=== PATIENT | male | born 1960 | race Caucasian/White ===

== ENCOUNTER 2023-01-05 18:50 | Observation (INO) | payer OTHER, SELFPAY ==
[2023-01-05] VITALS (7 sets, daily range): BP systolic 129–190; BP diastolic 51–71; PULSE 73–100; RESP 13–23; TEMP 38.1; O2SAT 86–98
--- NOTE | ~2023-01-05 | XR_ITS ---
EXAMINATION: XR chest 1V portable INDICATION: Shortness of breath and cough TECHNIQUE: Portable AP chest at 1925 hours COMPARISON: 04/16/2018 FINDINGS: There are interstitial and airspace opacities of the mid and lower lung zones. No pleural e ffusion or pneumothorax. The cardiomediastinal silhouette is normal. IMPRESSION: 1. Interstitial and airspace opacities of the mid and lower lung zones, consistent with pneumonia and /or pulmonary edema. Reviewed, dictated and finalized at location F. TRUCK DRIVER IMPRESSION: 1. Interstitial and airspace opacities of the mid and lower lung zones, consist ent with pneumonia and/or pulmonary edema.
--- NOTE | ~2023-01-05 | US_ITS ---
EXAMINATION: US venous doppler [facility] DATE: 01/07/2023 09:30 INDICATION: Lower limb edema. TECHNIQUE: Grayscale ultrasound images without and with compression and Doppler ultrasound images of the bilateral lower extremity veins were obtained. COMPARISON: None. FINDINGS: The visualized portions of right common femoral vein, profunda (deep) femoral vein, femoral vein, pop liteal vein, peroneal veins, posterior tibial veins, and greater saphenous vein outflow are patent. The visualized portions of left common femoral vein, profunda femoral vein, femoral vein, popliteal v ein, peroneal veins, posterior tibial veins, and greater saphenous vein outflow are patent. IMPRESSION: 1. No deep venous thrombosis. Reviewed, dictated and finalized at location D. NT CHEMIST
--- NOTE | 2023-01-05 19:04 | ECG_ITS ---
Measurements Intervals [place] Rate: 96 P: 91 NE: 140 QRS: 15 QRSD: 115 T: 149 QT: 321 QTc: 407 Interpretive Statements SINUS RHYTHM INTRAVENTRICULAR CONDUCTION DELAY NONSPECIFIC ST & T-WAVE ABNORMALITY- DIFFUSE LEADS BASELINE WANDER- I, II, AVR, AVL, V1-V6 BORDERLINE ECG NO PREVIOUS ECG AVAILABLE FOR COMPARISON Electronically Signed On 01-06-2023 6:44:59 SUPPORT CLERK by Wes Mohr D.O.
--- NOTE | 2023-01-05 19:20 | ED.GENADULT ---
HPI - General Adult General Chief complaint: Shortness of Breath/Dyspnea Stated complaint: SOB Time Seen by Provider: 01/05/23 19:08 History of Present Illness HPI narrative: Patient 62-year-old gentleman who presents to the emergency department with chief complaint of shortness of breath. The patient reports about a week ago he started having cough and was concerned that he may have COVID. The patient did a home test that was nondetected at that time. Patient states that he has history of COPD and reports that he has been feeling more short of breath. Related Data Home Medications Medication Instructions Recorded Confirmed metoprolol tartrate 50 mg tablet 100 mg PO DAILY 01/11/20 01/02/23 Allergies Allergy/AdvReac Type Severity Reaction Status Date / Time No Known Allergies Allergy Verified 01/05/23 18:58 Review of Systems Review of Systems: A 10 system review of systems was completed on the patient and is negative except for what is stated in the HPI. Nursing and ancillary documentation was reviewed. [facility] Past Medical History Medical History COVID-19 Electrical isolation of left atrial appendage after cardiac ablation procedure for atrial fibrillation Obesity Family History Family History Sibling Asthma Patient's sister is in good health Mother Family history of osteoarthritis Family history of Alzheimer's disease Family history of restless legs syndrome Patient's mother is Father Malignant neoplasm of prostate Patient's father is Social History Social History Smoking status: Never smoker Second hand tobacco smoke exposure: No Alcohol intake: current Alcohol use details: a beer occasionally Substance use: never Substance use type: does not use Lack of Transportation: No Lack of Food: Never True Current Housing: I Have Housing Concerned About Future Housing: No Difficulty Paying Gas/Electric Bills: No Difficulty Paying for Meds: No Currently Unemployed: No Education: Bachelor's Degree Difficulty w/ Childcare or Family Care: No Living arrangements: alone Spiritual care concerns: No Exam Narrative: GENERAL: Well-appearing, well-nourished, and in no acute distress. HEAD: Normocephalic, atraumatic. EYES: PERRLA and EOMI. ENT: Nares clear, no rhinorrhea or epistaxis. Mucous membranes moist. NECK: Supple. CHEST:scattered wheezes bilaterally. No respiratory distress. HEART: Regular rate and rhythm. No murmur heard. Normal peripheral pulses. ABDOMEN: Soft, nontender, nondistended, normal active bowel sounds. EXTREMITIES: Normal range of motion. No edema. SKIN: Warm, dry, no rash. NEURO: No focal deficits. Alert and oriented x3. PSYCH: Normal mood and affect. Course Vital Signs Vital signs: Vital Signs Temperature 38.1 C H 01/05/23 18:49 Pulse Rate 100 01/05/23 18:49 Respiratory Rate 23 H 01/05/23 18:49 Blood Pressure 190/71 H 01/05/23 18:49 Pulse Oximetry 86 L 01/05/23 18:49 Oxygen Delivery Room Air 01/05/23 18:49 Temperature 38.1 C H 01/05/23 18:49 Pulse Rate 88 01/05/23 19:39 Respiratory Rate 17 01/05/23 19:39 Blood Pressure 190/71 H 01/05/23 18:49 Pulse Oximetry 98 01/05/23 18:56 Oxygen Delivery Nasal Cannula 01/05/23 18:56 Oxygen Flow Rate 2 01/05/23 18:56 Medical Decision Making MDM Narrative Medical decision making narrative: Differential diagnosis includes COPD exacerbation, pneumonia, COVID-19, CHF, Chest x-ray shows evidence of infiltrates concerning for pneumonia EKG is sinus rhythm rate of [address] elevation or ST depression. Laboratory studies were obtained which showed a negative troponin BNP was 775 white blood cell count was 7.7. Patient was negative for
[2023-01-05] MEDS: ALBUTEROL SULFATE NEB 2.5 MG/3 ML INH INHALATION (19:28)
[2023-01-05] MEDS: IPRATROPIUM BR 0.02% INH SOLN 0.5 MG/2.5 ML VIAL INHALATION (19:28)
[2023-01-05] MEDS: methylPREDNISolone SOD SUCC 125 MG VIAL IV PUSH (19:45)
[2023-01-05 20:25] LABS: Basophils Absolute Auto 0.1 K/mm3 (0.0-0.1); Basophils Percent Auto 0.8 % (0.2-1.2); Eosinophils Percent Auto 0.5 % (0-4.4); Hematocrit 42.1 % (42.0-52.0); Hemoglobin 13.3 g/dL (14.0-18.0); Immature Granulocyte Absolute 0.08 K/mm3 (0.00-0.031); Lymphocytes Absolute Auto 0.95 K/mm3 (0.9-3.2); Lymphocytes Percent Auto 12.4 % (18.3-44.2); Mean Corpuscular HGB Conc 31.6 g/dl (32-36); Mean Corpuscular Hemoglobin 27.8 pg (26-34); Mean Corpuscular Volume 88.1 fl (80-100); Mean Platelet Volume 10.6 fl (7.4-10.4); Monocytes Percent Auto 12.6 % (2.6-8.5); Neutrophils Absolute Auto 5.6 K/mm3 (1.3-6.7); Neutrophils Percent Auto 72.7 % (45.5-73.1); Platelet Count Result 174 k/mm3 (150-375); Red Blood Count 4.78 M/mm3 (4.6-6.20); Red Cell Distribution Width 15.1 % (11.5-14.5); White Blood Count 7.7 K/mm3 (4.5-10.0)
[2023-01-05 20:42] LABS: Alanine Aminotransferase 50 U/L (6-50); Albumin Level 4.5 g/dL (3.5-5.1); Alkaline Phosphatase 69 U/L (38-126); Anion Gap 11 mmol/L (8-16); Aspartate Amino Transferase 50 U/L (17-59); Bilirubin,Total 1.2 mg/dL (0.2-1.3); Blood Urea Nitrogen 18 mg/dL (9-20); Calcium 8.6 mg/dL (8.4-10.2); Carbon Dioxide 25 mmol/L (22-30); Chloride 98 mmol/L (98-107); Estimated CRCL calculation 104 ml/min; Estimated Glomerular Filt Rate > 60; Glucose 151 mg/dL (65-110); Magnesium 2.2 mg/dL (1.6-2.3); Sodium 134 mmol/L (137-145)
[2023-01-05 20:43] LABS: Lactic Acid Reflex 1.2 mmol/L (0.7-2.0)
[2023-01-05 20:46] LABS: INR 1.4; Prothrombin Time 16.6 Seconds (11.1-14.7)
[2023-01-05 20:47] LABS: Partial Thromboplastin Time 49.3 SECONDS (22.3-36.8)
[2023-01-05 20:54] LABS: NT Pro B Type Natriuretic Pept 775 pg/mL (19.9-100); Troponin I 0.028 ng/mL (0.000-0.034)
[2023-01-05 21:02] LABS: Influenza A QL RT-PCR Negative (Negative); Influenza B QL RT-PCR Negative (Negative); RSV RNA, RT-PCR Negative (Negative); SARS-CoV-2 RNA PCR Negative
--- NOTE | 2023-01-05 21:23 | PM.IMHP ---
H&P: HPI History of Present Illness Date/Time: 01/05/23 21:23 Chief Complaint: Shortness of breath Narrative: 62-year-old male with past medical history of COPD, atrial fibrillation status post ablation, mild systolic heart failure, and obstructive sleep apnea on BiPAP who presented to the ER via EMS with shortness of breath cough and congestion for 1 week. He reports that his cough has occasionally been productive of a small amount of clear or yellow sputum. The patient was concerned they may have COVID and took a home COVID test was negative. When he arrived to the ER patient was hypoxic with oxygen saturations of 86% on room air. He does not use home oxygen. He sees Cardiology through the [facility]. He denies any vomiting but has been having some nausea. He did have a prescription for doxycycline that he had been prescribed by his primary care physician on an as-needed basis if he were to develop respiratory symptoms. He started taking the doxycycline 3 or 4 days ago. Since that time he has been having some looser stools but denies overt diarrhea. He has not been having any hematochezia or melena. He reports that initially symptoms were mostly cough. However today his shortness of breath worsened precipitously any could not even take his dogs out the yd. Even walking a few feet made markedly short of breath. He thusly came to the ER. He was noted to be febrile with a temperature of 100.5?. He is also tachypneic with respiratory rate of 23. Chest x-ray was performed which demonstrated bilateral lower lobe infiltrates consistent with pneumonia. His viral PCRs were negative. He received albuterol and Atrovent nebulizer, 1 dose of Solu-Medrol 125 mg and Rocephin and azithromycin. His oxygen saturations improved to 90% on 2 L nasal cannula. Patient had blood cultures performed as he met mild sepsis criteria. He did not receive fluid boluses as he does have history of systolic heart failure and he was not tachycardic or hypotensive. Although his urine did demonstrate 3+ ketones he is on Farxiga. He did have an echocardiogram prior to his cardiac ablation this past year which demonstrated an ejection fraction of around 41%. 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 He reports that his lower extremities have been more swollen the last couple of days because he has not been able to stand up and walk around as much and has been having is sit in a chair at his desk instead of using his standing desk. The edema is only on the tops of his feet. He denies any known ill contacts. He works from home. He has been compliant with his home BiPAP. The patient reports that he started developing a sensation of having Band-Aids on his toes which she thinks is early peripheral neuropathy. However microfilament test at his primary care physician's office was negative. His last hemoglobin A1c was a little over 7. He reports he has been having some blurring of his vision is left eye and is supposed to have cataract surgery next week which he realizes he will not have to reschedule. Review of Systems Review of Systems: 12 systems were reviewed with pertinent positives and negatives per HPI. Except as documented in the HPI, all other systems were reviewed and are negative. [facility] Past Medical History Medical History (Updated 01/06/23 @ 07:09 by Earline Perkins, DO) BPH (benign prostatic hyperplasia) Congestive heart failure Patient denies history of heart failure but is on Lasix at home and has a history of echocardiogram in 2013 demonstrated EF of 40% that was technically difficult study with poor quality. 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
[2023-01-05 21:30] LABS: Procalcitonin 0.2 ng/mL
[2023-01-05 21:37] LABS: Appearance Urine Clear (Clear); Bilirubin Urine 1+ (Negative); Blood Urine Negative (Negative); Color Urine Yellow (Yellow); Glucose Urine UA 2+ mg/dL (Negative); Ketones Urine 3+ mg/dL (Negative); Leukocyte Esterase Ur Negative LEU/UL (Negative); Nitrate Urine Negative (Negative); Protein Urine 1+ mg/dL (Negative); Urobilinogen Urine 0.2 mg/dL (<2.0)
[2023-01-05 21:42] LABS: Mucus Urine Rare /lpf; WBC Urine 0-3 /hpf
[2023-01-05 21:43] LABS: Add Urine Microscopic? YES
[2023-01-05 22:03] LABS: Troponin I 0.039 ng/mL (0.000-0.034)
[2023-01-06] VITALS (22 sets, daily range): BP systolic 126–136; BP diastolic 52–72; PULSE 61–98; RESP 14–20; TEMP 36.3–36.9; O2SAT 90–98; BMI 38.5
[2023-01-06] MEDS: OMEGA 3 POLYUNSAT FATTY ACIDS 1 GM CAP 2 GM PO ×3 (01:48→17:28)
[2023-01-06] MEDS: ATORVASTATIN 20 MG TABLET PO ×2 (01:49→20:54)
[2023-01-06] MEDS: DABIGATRAN ETEXILATE 150 MG CAPSULE PO ×3 (01:49→17:29)
[2023-01-06 02:56] LABS: Troponin I 0.023 ng/mL (0.000-0.034)
[2023-01-06] MEDS: IPRATROPIUM BR 0.02% INH SOLN 0.5 MG/2.5 ML VIAL INHALATION ×4 (03:47→20:43)
[2023-01-06] MEDS: ALBUTEROL SULFATE NEB 2.5 MG/3 ML INH 5 MG INHALATION ×4 (03:47→20:42)
[2023-01-06 05:08] LABS: Basophils Percent Auto 0.6 % (0.2-1.2); Eosinophils Percent Auto 0.2 % (0-4.4); Hematocrit 41.9 % (42.0-52.0); Immature Granulocyte Absolute 0.07 K/mm3 (0.00-0.031); Immature Granulocyte Percent A 1.3 % (0-0.5); Lymphocytes Absolute Auto 0.68 K/mm3 (0.9-3.2); Mean Corpuscular Hemoglobin 27.7 pg (26-34); Mean Corpuscular Volume 89.3 fl (80-100); Mean Platelet Volume 10.6 fl (7.4-10.4); Monocytes Absolute Auto 0.2 K/mm3 (0.1-0.6); Monocytes Percent Auto 3.2 % (2.6-8.5); Neutrophils Absolute Auto 4.3 K/mm3 (1.3-6.7); Neutrophils Percent Auto 81.7 % (45.5-73.1); Platelet Count Result 175 k/mm3 (150-375); Red Blood Count 4.69 M/mm3 (4.6-6.20); Red Cell Distribution Width 15.2 % (11.5-14.5); White Blood Count 5.3 K/mm3 (4.5-10.0)
[2023-01-06 05:27] LABS: Anion Gap 11 mmol/L (8-16); Blood Urea Nitrogen 22 mg/dL (9-20); Calcium 8.6 mg/dL (8.4-10.2); Carbon Dioxide 25 mmol/L (22-30); Chloride 99 mmol/L (98-107); Estimated CRCL calculation 91 ml/min; Estimated Glomerular Filt Rate > 60; Glucose 214 mg/dL (65-110); Potassium 4.6 mmol/L (3.4-5.0); Sodium 135 mmol/L (137-145)
[2023-01-06] MEDS: FLUTICASONE/SALMETEROL 115-21 MCG INHALER 1 PUFF 2 PUFF INHALATION ×2 (07:59→21:04)
[2023-01-06 08:21] LABS: Glucose Point of Care 202 mg/dl (65-105)
[2023-01-06] MEDS: INSULIN ASPART (*BKC) 100 UNITS/ML SUB-Q (09:04)
[2023-01-06] MEDS: allopurinoL 300 MG TABLET PO (09:07)
[2023-01-06] MEDS: CHOLECALCIFEROL 1,000 UNITS TABLET 4000 UNITS PO (09:07)
[2023-01-06] MEDS: EMPAGLIFLOZIN 25 MG TABLET BY MOUTH (09:08)
[2023-01-06] MEDS: lisinopriL 5 MG TABLET PO (09:08)
[2023-01-06] MEDS: metFORMIN HCL 500 MG TABLET PO ×2 (09:08→17:28)
[2023-01-06] MEDS: METOPROLOL SUCCINATE EXT REL 100 MG TABCR PO (09:11)
--- NOTE | 2023-01-06 10:19 | PM.IMPN ---
Progress Note: A&P Assessment and Plan (1) Pneumonia: Code(s): J18.9 - Pneumonia, unspecified organism Status: Acute Assessment and Plan: patient presents with cough, fever and congestion. He had low-grade fever here on admission. White count normal. Chest x-ray shows interstitial airspace opacities in the mid lower lung zones. He was diagnosed with community-acquired pneumonia and started on Rocephin and azithromycin. Will continue the same. Still having some wheezing. Will continue nebulizer treatments. Blood cultures have been obtained and are pending. Will check Sputum culture. Follow up on urine Legionella and urine pneumococcal antigen. (2) Acute respiratory failure with hypoxia: Code(s): J96.01 - Acute respiratory failure with hypoxia Status: Acute Assessment and Plan: Due to the pneumonia complicating patient's underlying COPD. Will continue scheduled nebulizer treatments. Will continue antibiotic therapy. Lasix IV x 1 given the concern for fluid overload. Check Echo. Check doppler LE (3) Sepsis: Qualifiers: Sepsis type: sepsis due to unspecified organism Sepsis acute organ dysfunction status: with acute organ dysfunction Severe sepsis acute organ dysfunction type: acute respiratory failure Acute respiratory failure type: with hypoxia Code(s): A41.9 - Sepsis, unspecified organism Status: Acute Assessment and Plan: The patient met sepsis criteria with transit tachypnea, fever, and acute hypoxic respiratory failure with underlying pneumonia. Patient did not receive fluid boluses due to history of heart failure in the fact the patient was not tachycardic or in acute evidence of decompensation from sepsis with only weak sepsis criteria. Viral PCRs were negative. (4) COPD with acute lower respiratory infection: Code(s): J44.0 - Chronic obstructive pulmonary disease with (acute) lower respiratory infection Status: Acute Assessment and Plan: Patient received steroids in the ED. Steroids were not continued after admission. He has been weaned to room air. Continue nebulizer treatments. (5) KEELY treated with BiPAP: Code(s): G47.33 - Obstructive sleep apnea (adult) (pediatric) Status: Acute Assessment and Plan: Continue Auto titrating BiPAP as ordered. Continue bleed in oxygen to maintain oxygen saturations of 92%. 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 Continue AccuCheks covering with sliding scale. Hypoglycemia protocol available as needed. Continue current medications. (7) Elevated troponin: Code(s): R77.8 - Other specified abnormalities of plasma proteins Status: Acute Assessment and Plan: The patient had a minimal bump in his troponin which is already trended down by the time of his 6 hour troponin. Elevated troponins likely due to demand ischemia from the patient's hypoxia and sepsis. There is no evidence of acute coronary artery occlusion. No Afib noted by tele. Subjective Date/time seen: 01/06/23 10:19 Interval history: 62yo male with COPD, atrial fibrillation status post ablation, systolic CHF and KEELY who presented to the ER via EMS with SOB, fever, cough and congestion for 1 week.?? Patient feels much better today. He will take deeper breaths without coughing. Symptoms improved after steroids. He was wheezing. He states he had fevers to 100.2 at home. Shortness of breath is much improved. He tolerated BiPAP last night. His cough is pro
[2023-01-06] MEDS: FUROSEMIDE INJ 40 MG/4 ML VIAL IV PUSH (11:37)
[2023-01-06 12:07] LABS: Glucose Point of Care 182 mg/dl (65-105)
[2023-01-06 16:45] LABS: Glucose Point of Care 183 mg/dl (65-105)
[2023-01-06 21:01] LABS: Glucose Point of Care 210 mg/dl (65-105)
[2023-01-07] VITALS (11 sets, daily range): BP systolic 142–150; BP diastolic 63–64; PULSE 80–95; RESP 18; TEMP 36.7; O2SAT 92–97
--- NOTE | 2023-01-07 | ECHO_ITS ---
Patient Info Name: Pradip Alanis Age: 62 years : 1960 Gender: Male Ht: 65 in Wt: 231 lbs BSA: 2.24 m2 HR: 86 bpm BP: 150 / 64 mmHg Heart Rhythm: Sinus Rhythm Technical Quality: Poor Exam Date: 01/07/2023 8:07 AM Exam Location: [facility] Patient Status: Inpatient Admit Date: 01/05/2023 Staff Ordering Physician: Edgar Domingo MD [place]ola Man: Ciara Petersen RDCS Attending Provider: Kiet Quan MD Exam Type: CA echo dop color flow w con Study Info Indications - chf Complete two-dimensional, color flow and Doppler transthoracic echocardiogram is performed with contrast to opacify the left ventricle and to improve the deliniation of the left ventricle endocardial borders. Contrast/Agitated Saline Contrast/Ag. Saline: Definity Amount: 3.00 ml Administered By: Ciara Petersen RDCS Existing IV Access: Yes IV Access Condition: patent with no signs of infiltration Summary 1. Technically suboptimal study due to poor sonographic images. 2. Definity contrast administered improved wall motion interpretation. 3. Left ventricular chamber dimension is mildly enlarged. 4. Left ventricular systolic function is normal, estimated at 55-60%. 5. The left ventricular diastolic function is abnormal. 6. E/e' 28 is elevated. 7. There is mild aortic valve sclerosis. 8. The mitral valve has mildly calcified annulus. 9. No pulmonary hypertension, estimated pulmonary arterial systolic pressure is 21 mmHg. Left Ventricle E/e' 28 is elevated. Definity contrast administered improved wall motion interpretation. Technically suboptimal study due to poor sonographic images. Left ventricular chamber dimension is mildly enlarged. Left ventricular systolic function is normal, estimated at 55-60%. The left ventricular diastolic function is abnormal. Right Ventricle Right ventricular chamber dimension is not well visualized. Right ventricular systolic function is normal. Left Atria Left atrial chamber dimension is normal. Right Atria Right atrial chamber dimension is not well visualized. Aortic Valve The aortic valve is trileaflet. There is mild aortic valve sclerosis. There is no aortic valve stenosis. There is no aortic valve regurgitation. Pulmonic Valve There is no pulmonic regurgitation. Mitral Valve The mitral valve has mildly calcified annulus. There is no mitral valve stenosis. There is no mitral valve regurgitation. Tricuspid Valve There is no tricuspid valve regurgitation. No pulmonary hypertension, estimated pulmonary arterial systolic pressure is 21 mmHg. Pericardium/Pleural There is no pericardial effusion. Inferior Vena Cava Normal inferior vena cava with >50% collapse upon inspiration consistent with normal right atrial pressure, 5 mmHg. Aorta The aortic root size at the sinus of Valsalva is normal. Left Ventricular Outflow Tract Name Value Normal LVOT 2D LVOT Diameter 1.97 cm LVOT Doppler LVOT Peak Gradient 5 mmHg LVOT Mean Gradient 3 mmHg
[2023-01-07] MEDS: IPRATROPIUM BR 0.02% INH SOLN 0.5 MG/2.5 ML VIAL INHALATION ×4 (03:07→14:07)
[2023-01-07] MEDS: ALBUTEROL SULFATE NEB 2.5 MG/3 ML INH 5 MG INHALATION (03:07)
[2023-01-07 07:09] LABS: Anion Gap 9 mmol/L (8-16); Blood Urea Nitrogen 34 mg/dL (9-20); Calcium 8.1 mg/dL (8.4-10.2); Carbon Dioxide 25 mmol/L (22-30); Chloride 104 mmol/L (98-107); Estimated CRCL calculation 81 ml/min; Estimated Glomerular Filt Rate > 60; Glucose 192 mg/dL (65-110); Potassium 3.7 mmol/L (3.4-5.0); Sodium 138 mmol/L (137-145)
[2023-01-07 08:58] LABS: Glucose Point of Care 199 mg/dl (65-105)
[2023-01-07] MEDS: OMEGA 3 POLYUNSAT FATTY ACIDS 1 GM CAP 2 GM PO (09:50)
[2023-01-07] MEDS: CHOLECALCIFEROL 1,000 UNITS TABLET 4000 UNITS PO (09:51)
[2023-01-07] MEDS: metFORMIN HCL 500 MG TABLET PO (09:51)
[2023-01-07] MEDS: allopurinoL 300 MG TABLET PO (09:51)
[2023-01-07] MEDS: lisinopriL 5 MG TABLET PO (09:51)
[2023-01-07] MEDS: EMPAGLIFLOZIN 25 MG TABLET BY MOUTH (09:51)
[2023-01-07] MEDS: DABIGATRAN ETEXILATE 150 MG CAPSULE PO (09:51)
[2023-01-07] MEDS: METOPROLOL SUCCINATE EXT REL 100 MG TABCR PO (09:51)
[2023-01-07] MEDS: FUROSEMIDE 40 MG TABLET PO (09:51)
[2023-01-07] MEDS: LEVALBUTEROL NEB 1.25 MG/3 ML 0.63 MG INHALATION ×2 (10:49→14:07)
[2023-01-07] MEDS: FLUTICASONE/SALMETEROL 115-21 MCG INHALER 1 PUFF 2 PUFF INHALATION (10:49)
[2023-01-07 11:11] LABS: Hemoglobin A1C 8.1 % (<5.7)
[2023-01-07 12:01] LABS: Glucose Point of Care 289 mg/dl (65-105)
[2023-01-07] MEDS: INSULIN ASPART (*BKC) 100 UNITS/ML SUB-Q (12:07)
--- NOTE | 2023-01-07 14:12 | PM.DS ---
DS: Admitting Diagnosis Discharge Date 01/07/23 Admitting Diagnosis Cough and fever. DS: Discharge Diagnosis Discharge Diagnosis (1) Pneumonia: Code(s): J18.9 - Pneumonia, unspecified organism Status: Acute (2) Acute respiratory failure with hypoxia: Code(s): J96.01 - Acute respiratory failure with hypoxia Status: Acute (3) Sepsis: Qualifiers: Sepsis type: sepsis due to unspecified organism Sepsis acute organ dysfunction status: with acute organ dysfunction Severe sepsis acute organ dysfunction type: acute respiratory failure Acute respiratory failure type: with hypoxia Code(s): A41.9 - Sepsis, unspecified organism Status: Acute (4) COPD with acute lower respiratory infection: Code(s): J44.0 - Chronic obstructive pulmonary disease with (acute) lower respiratory infection Status: Acute (5) KEELY treated with BiPAP: Code(s): G47.33 - Obstructive sleep apnea (adult) (pediatric) Status: Acute (6) Type 2 diabetes mellitus: Qualifiers: 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 insulin use: without senior care use Diabetes mellitus complication status: without complication Qualified Code(s): E11.9 - Type 2 diabetes mellitus without complications Code(s): E11.9 - Type 2 diabetes mellitus without complications Status: Acute (7) Elevated troponin: Code(s): R77.8 - Other specified abnormalities of plasma proteins Status: Acute DS: Summary Hospital Course Reason for hospitalization: 62yo male with COPD, atrial fibrillation status post ablation, systolic CHF and KEELY who presented to the ER via EMS with SOB, fever, cough and congestion for 1 week.?Please see H&P for details. Hospital Course: Patient presents with cough, fever and congestion.? He had low-grade fever here on admission.?The patient met sepsis criteria with transit tachypnea, fever, and acute hypoxic respiratory failure with underlying pneumonia.? Patient did not receive fluid boluses due to history of heart failure in the fact the patient was not tachycardic or in acute evidence of decompensation from sepsis with only weak sepsis criteria.? Viral PCRs were negative. White count was normal.? Chest x-ray shows interstitial airspace opacities in the mid lower lung zones.? He was diagnosed with community-acquired pneumonia and started on Rocephin and azithromycin.? He was also started on nebulizer treatments. Patient received steroids in the ED. Steroids were not continued after admission.?He had some wheezing but this improved.? Blood cultures no growth to date. Sputum culture pending.? Urine Legionella and urine pneumococcal antigen also pending. He did have acute respiratory failure with hypoxia due to the pneumonia complicating patient's underlying COPD.? Lasix IV x 1 given the concern for fluid overload. Echo showing EF 55-60% and abnormal diastolic dysfunction. LE venous doppler negative. The patient had a minimal bump in his troponin which is already trended down by the time of his 6 hour troponin.? Elevated troponins likely due to demand ischemia from the patient's hypoxia and sepsis.? There is no evidence of acute coronary artery occlusion. No Afib noted by tele. He had clinical improvement. He overall did well and was able to be discharged home on 01/07/23. Status at Discharge Cognitive/behavioral status at discharge: Stable Time Spent with Patient Time attestation: Total time spent providing and/or coordinating discharge services: 39 minutes Time spent: Greater than 30 minutes Exam Narrative: AF 150/64 80 18 92% ra Gen - NARD Chest - distant breath sounds with scattered wheezing, no wheezing. CV - RRR S1/S2. telemetry showing no significant dysrhythmia Abd - soft. Obese. Nontender. Positive bowel sounds. Ext - no pedal edema Psych - Nml mood and affect Skin - Warm and dry DS: Data Data Completed and Pending Labs on day of discharge: Labs from last 24
[2023-01-10 01:27] LABS: Legionella pneumophila Ag Ur Not Detected (Not Detected)
[2023-01-10 21:23] LABS: Pneumococcal Antigen Urine Not Detected (Not Detected)
== END 2023-01-07 15:05 | disposition home or self-care (01) ==
LOC: ANHED 21:23 → ANH2MED 23:04
PROVIDERS: Internal Medicine; Admitting Provider Family Medicine; Emergency Provider Emergency Medicine; PCP Internal Medicine; Visit Provider Internal Medicine
DX: J18.9 Pneumonia, unspecified organism (principal); J96.01 Acute respiratory failure with hypoxia; A41.9 Sepsis, unspecified organism; J44.0 Chronic obstructive pulmonary disease with (acute) lower respiratory infection; G47.33 Obstructive sleep apnea (adult) (pediatric); E11.9 Type 2 diabetes mellitus without complications; R77.8 Other specified abnormalities of plasma proteins; R60.0 Localized edema; Z20.822 Contact with and (suspected) exposure to COVID-19; I48.91 Unspecified atrial fibrillation; I11.0 Hypertensive heart disease with heart failure; I50.20 Unspecified systolic (congestive) heart failure; I45.4 Nonspecific intraventricular block; E66.9 Obesity, unspecified; I34.81 Nonrheumatic mitral (valve) annulus calcification; I35.8 Other nonrheumatic aortic valve disorders; Z68.38 Body mass index [BMI] 38.0-38.9, adult; N40.0 Benign prostatic hyperplasia without lower urinary tract symptoms; F10.90 Alcohol use, unspecified, uncomplicated; Z99.89 Dependence on other enabling machines and devices; E78.5 Hyperlipidemia, unspecified; Z86.16 Personal history of COVID-19; Z87.891 Personal history of nicotine dependence; Z79.899 Other long term (current) drug therapy; Z79.51 Long term (current) use of inhaled steroids; Z79.84 Long term (current) use of oral hypoglycemic drugs
CPT/HCPCS: 36415; 71045; 80048; 80053; 81001; 82948; 83036; 83605; 83735; 83880; 84145; 84443; 84484; 85025; 85610; 85730; 87040; 87070; 87205; 87449; 87637; 87899; 93005; 93970; 94640; 96365; 96367; 96374; 96375; 99285; A9270; C8929; G0378; J0131; J0456; J0696; J1815; J1940; J2930

== ENCOUNTER 2023-01-16 08:09 | Outpatient (CLI) | payer OTHER, SELFPAY ==
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
[2023-02-11 09:58] VITALS: BMI 37.4
== END 2023-01-17 06:29 | disposition home or self-care (01) ==
LOC: ANHCSM 08:10
PROVIDERS: PCP Internal Medicine; Visit Provider Physician Assistant
DX: G47.33 Obstructive sleep apnea (adult) (pediatric) (principal); G25.81 Restless legs syndrome
CPT/HCPCS: 95811

== ENCOUNTER 2023-01-30 06:31 | Day surgery (SDC) | payer OTHER, SELFPAY ==
[2023-01-02 12:24] VITALS: BMI 38.9
[2023-01-30 06:49] VITALS: BP 151/72; PULSE 74; RESP 16; TEMP 37.1; O2SAT 97
[2023-01-30] MEDS: TETRACAINE HCL 0.5% OPHTH SOLN 4 ML BTL 1 DROP AFFCTD EYE ×3 (06:55→07:05)
[2023-01-30] MEDS: OFLOXACIN 0.3% OPHTH SOLN 5 ML BTL 1 DROP AFFCTD EYE (06:55)
[2023-01-30 07:12] LABS: Glucose Point of Care 198 mg/dl (65-105)
--- NOTE | 2023-01-30 07:16 | WPDANESEPPF ---
Anes - Initial Pre Proc Eval Procedure: Operation Date: 01/30/23 07:30 Proposed Procedures p Cataract Extraction with Lens Implant-Right Eye - Jc Stark MD Date/Time: 01/30/23 07:16 Surgeon: Jc Stark MD Pre Op Diagnosis: Age Related Nuclear Catarct Right Eye Patient Data Age: 62 Gender: M Height: 1.65 m Weight: 98.3 kg Last Vital Signs Temp 37.1 C 01/30/23 06:49 Pulse 74 01/30/23 06:49 Resp 16 01/30/23 06:49 BP 151/72 H 01/30/23 06:49 Pulse Ox 97 01/30/23 06:49 O2 Del Method Room Air 01/30/23 06:49 Allergies Allergy/AdvReac Type Severity Reaction Status Date / Time No Known Allergies Allergy Verified 01/24/23 13:12 Home Medications Medication Instructions Recorded Confirmed Type dabigatran etexilate 150 mg 150 mg PO BID #30 caps 09/22/19 01/30/23 Rx capsule (Pradaxa) ergocalciferol (vitamin D2) 50 mcg 4,000 unit PO DAILY #90 tabs 02/14/21 01/30/23 Rx (2,000 unit) tablet icosapent ethyl 1 gram capsule 2 g PO BID #120 caps 05/16/22 01/30/23 Rx (Vascepa) atorvastatin 20 mg tablet 20 mg PO DAILY #90 tabs 07/16/22 01/30/23 Rx valacyclovir 1 gram tablet 1,000 mg PO Q12H PRN cold sores 10/03/22 01/30/23 Rx (Valtrex) #20 tabs Symbicort 160 mcg-4.5 2 puff inhalation BID #10.2 grams 11/12/22 01/30/23 Rx mcg/actuation HFA aerosol inhaler (budesonide-formoterol) allopurinol 300 mg tablet 300 mg PO DAILY 01/06/23 01/30/23 History furosemide 40 mg tablet 40 mg PO DAILY 01/06/23 01/30/23 History lisinopril 5 mg tablet 5 mg PO DAILY 01/06/23 01/30/23 History metformin 500 mg tablet 500 mg PO BID 01/06/23 01/30/23 History metoprolol succinate 100 mg 100 mg PO DAILY 01/06/23 01/30/23 History tablet,extended release 24 hr albuterol sulfate 90 mcg/actuation 2 puff inhalation QID PRN 01/07/23 01/30/23 Rx aerosol inhaler (ProAir HFA) shortness of breath or wheezing #6.7 grams empagliflozin 25 mg tablet 25 mg PO DAILY #90 tabs 01/24/23 01/30/23 Rx (Jardiance) Laboratory Tests 01/30/23 07:07 POC Capillary Glucose 198 mg/dl H mg/dl (65-105) Patient hx anesthesia problems: none Family hx anesthesia problems: none Results Review: All pre-operative results and documents have been reviewed as part of the pre-operative evaluation. [facility] Past Medical History Medical History (Updated 01/06/23 @ 07:09 by Earline Perkins DO) BPH (benign prostatic hyperplasia) Congestive heart failure Patient denies history of heart failure but is on Lasix at home and has a history of echocardiogram in 2012 demonstrated EF of 40% that was technically difficult study with poor quality. 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[facility] Type 2 diabetes mellitus On oral medications Vitamin D deficiency Surgical History Surgical History Electrical isolation of left atrial appendage after cardiac ablation procedure for atrial fibrillation History of tonsillectomy and adenoidectomy Family History Family History (Updated 01/05/23 @ 21:40 by Earline Perkins DO) Sibling Asthma Patient's sister is in good health Mother Dementia Osteoarthritis Restless legs syndrome (RLS) Father Malignant neoplasm of prostate Social History Social History (Updated 01/06/23 @ 06:58 by Earline Perkins DO) Social History: Patient has a distant history of smoking tobacco for few years when he was in college. He drinks alcohol on occasion in in moderation. He used to smoke marijuana pretty much on a daily basis for close to 50 years but quit September 2022 when he had his cardiac ablation. 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 He has 2 small dogs. He is . He does not have any
--- NOTE | 2023-01-30 07:30 | WPDHPUPDATE1 ---
History and Physical Update Update Date/Time: 01/30/23 07:30 History and Physical has been reviewed, including an updated exam of the patient. There are NO changes in the patient's condition. Risks, benefits, and alternatives have been discussed and questions answered. Patient agrees to proceed with procedure.
[2023-01-30] MEDS: LIDOCAINE HCL 2% JELLY 5 ML TUBE 1 APPLIC AFFCTD EYE (07:40)
[2023-01-30] MEDS: LIDOCAINE HCL 1% PF INJ 5 ML VIAL 1 ML INTRAOCULA (07:48)
[2023-01-30] MEDS: HOME MEDICATION 1 EACH AFFCTD EYE (08:05)
[2023-01-30] MEDS: NEOMYCIN/POLYMYXIN/DEXAMETH OP OINT 3.5 GM TUBE 1 APPLIC AFFCTD EYE (08:05)
[2023-01-30 08:09] VITALS: BP 146/72; PULSE 81; RESP 15; O2SAT 97
[2023-01-30] MEDS: acetaZOLAMIDE TAB 250 MG TABLET PO (08:09)
--- NOTE | 2023-01-30 11:38 | W.PM.PROC2 ---
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 After intravenous sedation and placement of monitors, the patient was prepped and draped in the usual sterile manner. A lid speculum was placed. A paracentesis was made, and preservative free 1% lidocaine was instilled in the anterior chamber. The anterior chamber was then filled with Viscoat viscoelastic. A lj keratome was used to create the wound. Continuous tear anterior capsulotomy was performed. The lens was hydro dissected before being removed with phacoemulsification. The remaining lenticular cortex was removed with aspiration. The capsular bag was polished and filled with viscoelastic material. An intraocular lens was chosen, inspected, irrigated and placed within the capsular bag where it was seen to be centered and stable. The viscoelastic material was aspirated. The wound was closed and found to be watertight. Ciloxan drops were placed in the eye. The speculum was removed. A Ruiz shield was applied. The patient tolerated the procedure well and left the operating room in satisfactory condition. Implants See chart Complications None Condition Stable Disposition Same day
--- NOTE | 2023-01-30 11:49 | WPDANESPN ---
Anes - Prog Note Post-Op Date/Time: 01/30/23 11:49 Cardiovascular status: normal Respiratory status: normal Airway patency: baseline Mental status: baseline Post-Op hydration status: normal Vital Signs: Last Vital Signs Temp 37.1 C 01/30/23 06:49 Pulse 81 01/30/23 08:09 Resp 15 01/30/23 08:09 BP 146/72 H 01/30/23 08:09 Pulse Ox 97 01/30/23 08:09 O2 Del Method Room Air 01/30/23 08:09 Pain Score (VAS): 0 01/30/23 07:07 POC Capillary Glucose 198 H Post-procedural complaints: none Patient Feedback: Patient satisfied with anesthetic care.
== END 2023-01-30 08:30 | disposition home or self-care (01) ==
PROVIDERS: PCP Internal Medicine; Visit Provider Student in an Organized Health Care Education/Training Program
PROC: (CPT 66983; principal; 2023-01-30 07:30)
DX: H25.11 Age-related nuclear cataract, right eye (principal)
CPT/HCPCS: 66984

== ENCOUNTER 2024-01-13 19:52 | Observation (INO) | payer MEDICARE, OTHER, SELFPAY ==
[2024-01-13] VITALS (30 sets, daily range): BP systolic 110–145; BP diastolic 44–71; PULSE 76–105; RESP 10–35; TEMP 36.4–39.3; O2SAT 88–98
--- NOTE | ~2024-01-13 | CT_ITS ---
EXAMINATION: CT brain wo con DATE: 01/13/2024 20:14 INDICATION: stat stroke . TECHNIQUE: Computed tomography (CT) of the head was performed without intravenous contrast. The mA wa s adjusted according to patient size. Iterative reconstruction technique was employed. The dose-lengt h product was 681.00 mGy-cm. COMPARISON: None. FINDINGS: No acute intracranial hemorrhage or extra-axial fluid collection. No hydrocephalus, mass, or herniation. No acute ischemic infarct. Unremarkable dural venous sinus attenuation. No acute osseous abnormality. Mucosal thickening in the ethmoid air cells, poorly pneumatized mastoid air cells, the remaining aera keely spaces are clear. Mild atrophy and chronic white matter change. Atherosclerotic intracranial calcification. Right lens replacement. IMPRESSION: No acute intracranial process. Results reported telephonically to Dr. Cullen by Dr. Khan at 8:21 PM on 01/13/2024. Reviewed, dictated and finalized at location K. IMPRESSION: No acute intracranial process. Results reported telephonically to Dr. Cullen by Dr. Khan at 8:21 PM on 024.
--- NOTE | ~2024-01-13 | XR_ITS ---
EXAMINATION: XR chest 1V portable Exam Date/Time: 01/13/2024 20:20 CDT HISTORY: confusion Comparison: 01/05/2023. RESULT: Lines, tubes, and devices: None. Lungs and pleura: Clear. Cardiomediastinal silhouette: Stable dilated central pulmonary arteries versus lymphadenopathy. Other: No acute osseous or upper abdominal finding. IMPRESSION: No acute cardiopulmonary process. Reviewed, dictated and finalized at location K.
--- NOTE | 2024-01-13 20:05 | ECG_ITS ---
Measurements Intervals Amo Rate: 102 P: 86 MS: 137 QRS: 22 QRSD: 98 T: 195 QT: 317 QTc: 415 Interpretive Statements SINUS TACHYCARDIA ST-T WAVE ABNORMALITY IN DIFFUSE LEADS- CONSIDER ISCHEMIA BASELINE ARTIFACT- I, II, III, V3-V6 ABNORMAL ECG COMPARED TO ECG 01/05/2023 18:57:30 [address]IA NOW PRESENT ST-T WAVE ABNORMALITY NOW PRESENT Electronically Signed On 01-14-2024 6:44:06 CDT by Wes Mohr D.O.
[2024-01-13 20:09] LABS: Basophils Absolute Auto 0.07 K/mm3 (0.00-0.10); Basophils Percent Auto 0.7 % (0.0-1.0); Eosinophils Absolute Auto 0.03 K/mm3 (0.02-0.50); Eosinophils Percent Auto 0.3 % (1.0-6.0); Hematocrit 41.3 % (37.0-46.0); Hemoglobin 13.1 g/dL (12.4-15.3); Immature Granulocyte Absolute 0.07 K/mm3 (0.00-0.00); Immature Granulocyte Percent A 0.7 % (0.0-0.0); Lymphocytes Absolute Auto 0.55 K/mm3 (1.10-4.50); Lymphocytes Percent Auto 5.3 % (18.0-42.0); Mean Corpuscular HGB Conc 31.7 g/dL (32.0-36.0); Mean Corpuscular Hemoglobin 27.5 pg (27.0-31.0); Mean Corpuscular Volume 86.6 fL (78.0-102.0); Mean Platelet Volume 9.9 fl (8.7-11.0); Monocytes Absolute Auto 0.76 K/mm3 (0.10-0.90); Monocytes Percent Auto 7.3 % (2.0-11.0); Neutrophils Absolute Auto 8.9 K/mm3 (1.7-7.2); Neutrophils Percent Auto 85.7 % (50.0-70.0); Platelet Count Result 181 K/mm3 (150-420); Red Blood Count 4.77 M/mm3 (4.70-6.10); Red Cell Distribution Width 15.7 % (11.6-14.4); White Blood Count 10.4 K/mm3 (4.8-10.8)
[2024-01-13 20:25] LABS: INR 1.4; Partial Thromboplastin Time 49.2 SEC (23.90-30.70); Prothrombin Time 14.6 Seconds (9.50-12.10)
[2024-01-13 20:37] LABS: Alanine Aminotransferase 53 U/L (16-63); Albumin Level 3.8 g/dL (3.4-5.0); Alkaline Phosphatase 57 U/L (46-116); Anion Gap 10 mmol/L (8-16); Aspartate Amino Transferase 39 U/L (15-37); Bilirubin,Total 1.3 mg/dL (0.00-1.00); Blood Urea Nitrogen 18 mg/dL (7-18); Calcium 8.5 mg/dL (8.5-10.1); Carbon Dioxide 27 mmol/L (21-32); Chloride 103 mmol/L (98-108); Creatine Kinase 452 U/L (39-308); Estimated CRCL calculation 64 ml/min; Estimated Glomerular Filt Rate > 60; Glucose 162 mg/dL (70-99); Osmolality Calculated 295 mOsm/kg (285-295); Potassium 3.8 mmol/L (3.5-5.1); Sodium 140 mmol/L (136-145); Total Protein 6.8 g/dL (6.4-8.2); Troponin I 18.7 ng/L (0.00-60.4)
[2024-01-13 20:41] LABS: Hemoglobin A1C 6.7 % (<5.7)
--- NOTE | 2024-01-13 20:50 | PC.NURSE ---
patient sitting on bedside to urinate, yellow clear urine obtained and sent to lab. patient swabbed for respiratory pathogens and medicated per order, see MAR. patient assisted back onto stretcher, bilateral siderails up for patient safety and call light within reach.
[2024-01-13] MEDS: ACETAMINOPHEN 500 MG TABLET 1000 MG PO (20:54)
[2024-01-13] MEDS: ASPIRIN 81 MG CHEWABLE TABLET 324 MG PO (20:56)
[2024-01-13] MEDS: IPRATROPIUM 0.5 MG/ALBUTEROL SULFATE 2.5 MG AMPUL.NEB 3 ML INHALATION ×2 (21:35→23:37)
[2024-01-13 21:43] LABS: Influenza A QL RT-PCR Positive (Negative); Influenza B QL RT-PCR Negative (Negative); RSV RNA, RT-PCR Negative (Negative); SARS-CoV-2 RNA PCR Negative (Negative)
[2024-01-13] MEDS: methylPREDNISolone SOD SUCC 125 MG VIAL IV PUSH (23:37)
--- NOTE | 2024-01-13 23:43 | PC.NURSE ---
patient awake and alert, update provided and patient medicated per order. patient sister remains at bedside. patient reports improved feeling after initial breathing tx.
[2024-01-14] VITALS (21 sets, daily range): BP systolic 112–126; BP diastolic 62–68; PULSE 70–88; RESP 17–41; TEMP 36.4–36.5; O2SAT 87–98; BMI 36.9
--- NOTE | 2024-01-14 00:33 | ED.NEUROSD ---
HPI - Neuro Symptoms/Deficit General Chief Complaint: Suspected CVA Stated Complaint: stroke Time Seen by Provider: 01/13/24 19:54 Related Data Home Medications Medication Instructions Recorded Confirmed metoprolol succinate 100 mg 100 mg PO DAILY 01/06/23 11/28/23 tablet,extended release 24 hr Allergies Allergy/AdvReac Type Severity Reaction Status Date / Time No Known Allergies Allergy Verified 11/28/23 07:56 [facility] Past Medical History Medical History (Updated 11/28/23 @ 08:55 by Marianna Dupree APRN) Acute respiratory failure with hypoxia BPH (benign prostatic hyperplasia) Congestive heart failure Patient denies history of heart failure but is on Lasix at home and has a history of echocardiogram in 2013 demonstrated EF of 40% that was technically difficult study with poor quality. 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 He drinks alcohol on occasion in in moderation. He used to smoke marijuana pretty much on a daily basis for close to 50 years but quit September 2022 when he had his cardiac ablation. 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 He has 2 small dogs. He is . He does not have any children. Code status: Full code Surrogate decision maker: Simi Esparza (sister) Smoking status: Former smoker Tobacco type: cigarettes Second hand tobacco smoke exposure: No Alcohol intake: current Alcohol use details: a beer occasionally, 1-2 beers a month Substance use: never Substance use type: does not use Lack of Transportation: No Lack of Food: Never True Current Housing: I Have Housing Concerned About Future Housing: No Difficulty Paying Gas/Electric Bills: No Difficulty Paying for Meds: No Currently Unemployed: No Education: Bachelor's Degree Difficulty w/ Childcare or Family Care: No Living arrangements: alone Occupation/Education: occupation Gender identity (if verbalized by the patient): Male Spiritual care concerns: No Course Vital Signs Vital signs: Vital Signs Pulse Rate 104 H 01/13/24 19:52 Respiratory Rate 28 H 01/13/24 19:52 Blood Pressure 140/62 01/13/24 19:52 Pulse Oximetry 88 L 01/13/24 19:52 Temperature 99.8 F H 01/13/24 23:55 Pulse Rate 85 01/14/24 00:00 Respiratory Rate 26 H 01/14/24 00:00 Blood Pressure 117/71 01/13/24 21:46 Pulse Oximetry 91 01/14/24 00:00 Oxygen Delivery Room Air 01/14/24 00:00 Oxygen Flow Rate 3 01/13/24 22:00 MDM - Neuro Symptoms/Deficit MDM Narrative Medical decision making narrative: Patient's still requiring O2. WIll admit for influenza and oxygen requirement. Differential Diagnosis Differential diagnosis: Likely other (Influenza ) Medical Records Attestation: I reviewed the patient's medical records. Lab Data Attestation: I reviewed the patient's lab results. 01/13/24 20:05 01/13/24 20:05 Labs: Lab Results 01/13/24 01/13/24 01/13/24 Range/Units 20:05 20:18 21:03 WBC 10.4 (4.8-10.8) K/mm3 RBC 4.77 (4.70-6.10) M/mm3 Hg
--- NOTE | 2024-01-14 02:13 | PC.NURSE ---
Pt used urinal c SBA at bedside. Back to bed and lights dimmed, pt turned self to side to try to sleep until able to be admitted upstairs.
--- NOTE | 2024-01-14 03:55 | ADMGEN ---
This patient, Pradip Alanis, was admitted to 2nd Floor Room 201-1. Patient oriented to hospital policies and general routines including ID bracelet, bed and alarms, visiting hours, pain management, procedures, bathroom and other care routines, personal items, smoking policy, room service/diet, and visiting hours. Information on how to activate the Rapid Response Team has been discussed. Patient encouraged to report perceived risks to care and to ask questions if they do not understand what they are told or what they should do.
[2024-01-14 11:49] LABS: Glucose Point of Care 244 mg/dl (65-105)
--- NOTE | 2024-01-14 12:55 | PC.NURSE ---
Discharge instructions reviewed with patient, patient verbalizes understanding. Patient's sister arrived to take patient home, brought copies of living will, copies placed in medical record. Patient off floor at 1255, assisted into [employer] vehicle.
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
--- NOTE | 2024-01-15 13:57 | PC.NURSE ---
Discharge call back completed doing ok, slept well, able to use cpap at home, cough is less, did understand dc instructions, no questions or concerns
== END 2024-01-14 12:55 | disposition home or self-care (01) ==
LOC: CHSED 22:58 → CHS2ND 01-14 00:39
PROVIDERS: Admitting Provider Internal Medicine; Emergency Provider Family Medicine; Visit Provider Internal Medicine
DX: J10.1 Influenza due to other identified influenza virus with other respiratory manifestations (principal); N39.0 Urinary tract infection, site not specified; I11.0 Hypertensive heart disease with heart failure; I50.9 Heart failure, unspecified; J44.9 Chronic obstructive pulmonary disease, unspecified; R94.31 Abnormal electrocardiogram [ECG] [EKG]; R00.0 Tachycardia, unspecified; A60.00 Herpesviral infection of urogenital system, unspecified; N40.0 Benign prostatic hyperplasia without lower urinary tract symptoms; E78.1 Pure hyperglyceridemia; E78.5 Hyperlipidemia, unspecified; Z20.822 Contact with and (suspected) exposure to COVID-19; G47.33 Obstructive sleep apnea (adult) (pediatric); Z99.89 Dependence on other enabling machines and devices; M10.9 Gout, unspecified; I48.0 Paroxysmal atrial fibrillation; F10.90 Alcohol use, unspecified, uncomplicated; Z77.22 Contact with and (suspected) exposure to environmental tobacco smoke (acute) (chronic); Z86.16 Personal history of COVID-19; Z87.891 Personal history of nicotine dependence; Z79.51 Long term (current) use of inhaled steroids; Z79.01 Long term (current) use of anticoagulants; Z79.84 Long term (current) use of oral hypoglycemic drugs; Z79.85 Long-term (current) use of injectable non-insulin antidiabetic drugs; Z79.899 Other long term (current) drug therapy
CPT/HCPCS: 36415; 70450; 71045; 80053; 82550; 82553; 82948; 83036; 84484; 85025; 85610; 85730; 87637; 93005; 94640; 96374; 99285; A9270; G0378; J2930

== ENCOUNTER 2024-04-23 15:20 | Outpatient (CLI) | payer MEDICARE, OTHER, SELFPAY ==
--- NOTE | ~2024-04-23 | XR_ITS ---
EXAMINATION: XR foot LT 2V DATE: 04/23/2024 15:38 INDICATION: Left foot injury. TECHNIQUE: 2 views of left foot were obtained. COMPARISON: None. FINDINGS: Bone alignment is normal. No fracture. There is mild osteoarthritis of first metatarsophala ngeal joint. There are enthesophytes at the posterior and plantar aspects of calcaneal tuberosity. IMPRESSION: 1. No acute fracture. Reviewed, dictated and finalized at location A. IMPRESSION: 1. No acute fracture.
== END 2024-04-23 15:21 | disposition home or self-care (01) ==
LOC: ANHIMG 15:22
PROVIDERS: PCP Nurse Practitioner Family; Visit Provider Nurse Practitioner Family
DX: S99.922A Unspecified injury of left foot, initial encounter (principal); X58.XXXA Exposure to other specified factors, initial encounter
CPT/HCPCS: 73620